=== PATIENT | male | born 1985 | race Caucasian/White ===

== ENCOUNTER 2016-08-31 01:58 | Emergency (ER) | payer OTHER ==
[2016-08-31 02:51] VITALS: BP 129/76; PULSE 70; TEMP 98.1; BMI 23.6
[2016-08-31] MEDS ORDERED: OXYCODONE/APAP 5/325MG COMBO TABLET PO ONE (03:16)
[2016-08-31] MEDS ORDERED: IBUPROFEN 400 MG TABLET (FP) PO ONE ×2 (03:16→03:30)
--- NOTE | 2016-08-31 03:17 | PDOC ---
History of Present Illness - General Chief Complaint: Back Pain Stated Complaint: EXPOSURE,PAIN/LOW BACK Time Seen by Provider: 08/31/16 02:46 History Source: Patient Exam Limitations: No Limitations - History of Present Illness Initial Comments: 08/31/16 04:38 30yo Male patient presents to ED c/o low back pain and right elbow pain. Patient states symptoms began after giving a subject CPR/Chest compressions. 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 He denies any hx of back pain/ injury. Denies any other complaints at this time. Occurred: reports: just prior to arrival Severity: reports: moderate Pain Location: reports: back, upper extremity Method of Injury: Yes: other (See HPI) Modifying Factors: improves with: pain medication, rest Loss of Consciousness: no loss of consciousness Past History - Travel Traveled outside of the country in the last 30 days: No Close contact w/someone who was outside of country & ill: No - Past Medical History Allergies/Adverse Reactions: Allergies Allergy/AdvReac Type Severity Reaction Status Date / Time No Known Allergies Allergy Verified 08/31/16 02:49 Home Medications: Ambulatory Orders Ibuprofen 600 mg PO Q6H PRN #30 tablet 08/31/16 Methocarbamol [Robaxin -] 750 mg PO Q8H PRN #30 tablet 08/31/16 Oxycodone HCl/Acetaminophen [Endocet 5-325 Tablet] 1 each PO Q6H PRN #16 tablet MDD 4 tabs 08/31/16 - Immunization History Immunization Up to Date: Yes - Psycho/Social/Smoking Cessation Hx Anxiety: No Suicidal Ideation: No Smoking Status: No Smoking History: Never smoked Have you smoked in the past 12 months: No Number of Cigarettes Smoked Daily: 0 Information on smoking cessation initiated: No Hx Alcohol Use: No Drug/Substance Use Hx: No Substance Use Type: None Trauma Specific PMHX - Complaint Specific PMHX Arthritis: No Back Injury: No Neck Injury: No Hx Sacro Iliac Joint Dysfunction: No Review of Systems - Review of Systems Able to Perform ROS?: Yes Is the patient limited Bahamian proficient: No Constitutional: No: Chills, Fever HEENTM: No: Blurred Vision, Double Vision Respiratory: No: Cough, Orthopnea, Shortness of Breath, Stridor, Wheezing Cardiac (ROS): No: Chest Pain, Palpitations, Syncope, Chest Tightness ABD/GI: No: Constipated, Diarrhea, Nausea, Vomiting : No: Burning, Dysuria, Discharge, Frequency, Flank Pain, Hematuria, Pain, Urgency Musculoskeletal: Yes: Back Pain, Joint Pain. No: Joint Swelling, Muscle Pain, Muscle Weakness, Neck Pain, Joint Stiffness Integumentary: No: Bruising, Sweating Neurological: No: Headache, Seizure, Unsteady Gait, Ataxia All Other Systems: Reviewed and Negative *Physical Exam - Vital Signs Last Vital Signs Temp Pulse Resp BP Pulse Ox 98.1 F 70 20 129/76 98 08/31/16 02:50 08/31/16 02:50 08/31/16 02:50 08/31/16 02:50 08/31/16 02:50 - Physical Exam General Appearance: Yes: Nourished, Appropriately Dressed. No: Apparent Distress, Mild Distress, Moderate Distress, Severe Distress HEENT: positive: EOMI, MISTY, Normal ENT Inspection, Normal Voice, Symmetrical, TMs Normal, Pharynx Normal. negative: Nasal Congestion, Rhinorrhea, Sinus Tenderness Neck: positive: Trachea midline, Supple. negative: Decreased range of motion, Stridor Respiratory/Chest: positive: Lungs Clear, Normal Breath Sounds. negative: Respiratory Distress, Accessory Muscle Use, Labored Respiration, Rapid RR Cardiovascular: positive: Regular Rhythm, Regular Rate. negative: Edema, JVD, Murmur Gastrointestinal/Abdominal: positive: Normal Bowel Sounds, Soft. negative: Guarding, Rebound, Tenderness Musculoskeletal: positive: Normal Inspection, Decreased Range of Motion, Other ( Left paraspinal tenderness on examination.). negative: CVA Tenderness Extremity: positive: Normal Capillary Refill, Normal Inspection, Normal Range of Motion, Other (Right elbow tenderness. 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, Fully Oriented, Alert, Normal Mood/ Affect, Normal Response, Motor Strength 5/5 ED Treatment Course - RADIOLOGY Radiology Studies Ordered: Category Date Time Status ELBOW-RIGHT [RAD] Stat Radiology 08/31/16 03:16 Ordered SPINE-LUMBAR SACRAL [RAD] Stat Radiology 08/31/16 03:16 Ordered *DC/Admit/Observation/Transfer Diagnosis at time of Disposition: Tendonitis of elbow, right Low back pain Qualifiers: Chronicity: acute Back pain laterality: left Sciatica presence: without sciatica Qualified Code(s): M54.5 - Low back pain - Discharge Dispostion Disposition: HOME Condition at time of disposition: Improved Admit: No - Prescriptions Prescriptions: Oxycodone HCl/Acetaminophen [Endocet 5-325 Tablet] 1 each PO Q6H PRN #16 tablet MDD 4 tabs PRN Reason: Severe Pain Ibuprofen 600 mg PO Q6H PRN #30 tablet PRN Reason: Mild Pain Methocarbamol [Robaxin -] 750 mg PO Q8H PRN #30 tablet PRN Reason: Back Pain - Referrals Referrals: Kayden Buchanan MD [Staff Physician] - - Patient Instructions Printed Discharge Instructions: DI for Low Back Pain, DI for Tendinitis Additional Instructions: FOLLOW UP WITH YOUR PRIMARY CARE PROVIDER. IF SYMPTOMS PERSIST AFTER 1 WEEK WITH MEDICATION USE. CALL DR. BUCHANAN FOR FOLLOW UP APPOINTMENT. APPLY WARM COMPRESS TO LOW BACK AND COLD COMPRESS TO RIGHT ELBOW NEEDED. MANDY WRAP ELBOW FOR PAIN/DISCOMFORT. TAKE MEDICATIONS PRESCRIBED. DO NOT DRIVE, DRINK ALCOHOL OR OPERATE HEAVY MACHINERY WHILE TAKING ENDOCET. Print Language: THAI
[2016-08-31] MEDS ORDERED: OXYCODONE/APAP 5/325MG COMBO TABLET ONE (03:30)
== END 2016-08-31 04:54 | disposition home or self-care (01) ==
LOC: JER 01:58
DX: M70.821 Other soft tissue disorders related to use, overuse and pressure, right upper arm (principal); M54.5 Low back pain; X50.9XXA Other and unspecified overexertion or strenuous movements or postures, initial encounter; Y93.F9 Activity, other caregiving; Y92.89 Other specified places as the place of occurrence of the external cause; Y99.0 Civilian activity done for income or pay
CPT/HCPCS: 72100-TC; 73070-TC-RT; 99281-25

== ENCOUNTER 2017-09-12 18:42 | Emergency (ER) | payer OTHER ==
--- NOTE | 2017-09-12 18:56 | PDOC ---
Rapid Medical Evaluation Time Seen by Provider: 09/12/17 18:47 Medical Evaluation: Allergies Allergy/AdvReac Type Severity Reaction Status Date / Time No Known Allergies Allergy Verified 08/31/16 02:49 09/12/17 18:55 I have performed a brief in-person evaluation of this patient. The patient presents with a chief complaint of: "fighting someone while we were trying to arrest him, fell on both knees" Pertinent physical exam findings: mild erythema to b/l knees, no hematoma/ ecchymosis, ambulatory I have ordered the following: nothing The patient will proceed to the ED for further evaluation.
[2017-09-12 18:57] VITALS: BP 122/72; PULSE 93; TEMP 98.3; BMI 25.0
--- NOTE | 2017-09-12 19:09 | PDOC ---
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 Lanes of pain and mild swelling to bilateral patella. Is ambulatory in no other injury. 09/12/17 19:29 Occurred: reports: this afternoon Severity: reports: mild Pain Location: reports: lower extremity (bilateral knees ) Method of Injury: Yes: fall Associated Symptoms (Fall): denies symptoms Past History - Travel Traveled outside of the country in the last 30 days: No Close contact w/someone who was outside of country & ill: No - Past Medical History Allergies/Adverse Reactions: Allergies Allergy/AdvReac Type Severity Reaction Status Date / Time No Known Allergies Allergy Verified 09/12/17 18:57 Home Medications: Ambulatory Orders NK [No Known Home Medication] 09/12/17 COPD: No - Immunization History Immunization Up to Date: Yes - Suicide/Smoking/Psychosocial Hx Smoking Status: No Smoking History: Never smoked Have you smoked in the past 12 months: No Number of Cigarettes Smoked Daily: 0 Information on smoking cessation initiated: No Hx Alcohol Use: No Drug/Substance Use Hx: No Substance Use Type: None Trauma Specific PMHX - Complaint Specific PMHX Arthritis: No Back Injury: No Neck Injury: No Hx Sacro Iliac Joint Dysfunction: No Review of Systems - Review of Systems Able to Perform ROS?: Yes Is the patient limited Greek proficient: Yes Constitutional: Yes: See HPI. No: Symptoms Reported HEENTM: Yes: See HPI. No: Symptoms Reported Respiratory: Yes: See HPI. No: Symptoms reported Musculoskeletal: Yes: Symptoms Reported, See HPI, Joint Pain, Joint Swelling ( bilateral knees ) Integumentary: Yes: Symptoms Reported, See HPI, Bruising All Other Systems: Reviewed and Negative *Physical Exam - Vital Signs Last Vital Signs Temp Pulse Resp BP Pulse Ox 98.3 F 93 H 18 122/72 100 09/12/17 18:55 09/12/17 18:55 09/12/17 18:55 09/12/17 18:55 09/12/17 18:55 - Physical Exam General Appearance: Yes: Nourished, Appropriately Dressed, Apparent Distress HEENT: positive: MISTY, Normal ENT Inspection, TMs Normal, Pharynx Normal Neck: positive: Supple. negative: Lymphadenopathy (R) Respiratory/Chest: positive: Normal Breath Sounds Musculoskeletal: positive: Normal Inspection. negative: Vertebral Tenderness Extremity: positive: Normal Inspection, Normal Range of Motion, Tender, Swelling (no crepitus, step-off, no bony deformity. No medial or lateral tenderness, is ambulatory without unsteadiness or limp. 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, Fully Oriented, Alert, Normal Mood/ Affect, Normal Response, Motor Strength /5 Progress Note - Progress Note Progress Note: contusion, bilateral knees we'll treat conservatively with ice packs and ibuprofen *DC/Admit/Observation/Transfer Diagnosis at time of Disposition: Knee contusion Qualifiers: Encounter type: initial encounter Laterality: unspecified laterality Qualified Code(s): S80.00XA - Contusion of unspecified knee, initial encounter - Discharge Dispostion Disposition: HOME Condition at time of disposition: Stable Admit: No - Referrals Referrals: Kendy Rivera MD [Primary Care Provider] - - Patient Instructions Printed Discharge Instructions: DI for Contusion Additional Instructions: Rest, ice to area on and off for 15 minutes 4-6 times a day Avoid heavy lifting or exercise until pain and swelling is resolved or until further directed Keep area highly elevated to reduce swelling Use splints/Nav wrap as directed Followup with orthopedist in one to 2 days if not improving, if significantly improved may wait one week for followup with orthopedist May use ibuprofen 2-200 mg tablets every 6 hours as needed for pain - Post Discharge Activity Forms/Work/School Notes: Back to Work
[2017-09-12] MEDS ORDERED: IBUPROFEN 600 MG TABLET (FP) PO ONE ×2 (19:26→19:27)
== END 2017-09-12 19:33 | disposition home or self-care (01) ==
LOC: JERFT 18:42
DX: S80.02XA Contusion of left knee, initial encounter (principal); S80.01XA Contusion of right knee, initial encounter; W18.39XA Other fall on same level, initial encounter; Y35.811A Legal intervention involving manhandling, law enforcement official injured, initial encounter; Y93.89 Activity, other specified; Y92.89 Other specified places as the place of occurrence of the external cause; Y99.0 Civilian activity done for income or pay
CPT/HCPCS: 99281-25

== ENCOUNTER 2018-02-21 21:38 | Emergency (ER) | payer OTHER ==
--- NOTE | 2018-02-21 21:51 | PDOC ---
Rapid Medical Evaluation Chief Complaint: Non EmpBld/Body Flud Exposure Time Seen by Provider: 02/21/18 21:49 Medical Evaluation: Allergies Allergy/AdvReac Type Severity Reaction Status Date / Time No Known Allergies Allergy Verified 09/12/17 18:57 02/21/18 21:50 I have performed a brief in-person evaluation of this patient. The patient presents with a chief complaint of: [employer], patient was potentially exposed to someone with TB on 02/15, reports having "minor cold last week", denies fevers, nightsweats, hemoptysis Pertinent physical exam findings: lungs ctab I have ordered the following: chest x-ray The patient will proceed to the ED for further evaluation. Discharge Disposition - Diagnosis Tuberculosis exposure - Referrals - Patient Instructions
[2018-02-21 21:53] VITALS: BP 129/63; PULSE 79; TEMP 97.9; BMI 25.7
--- NOTE | 2018-02-21 22:23 | PDOC ---
History of Present Illness - General Chief Complaint: Non EmpBld/Body Flud Exposure Stated Complaint: EXPOSURE-[employer] Time Seen by Provider: 02/21/18 21:49 History Source: Patient Exam Limitations: No Limitations - History of Present Illness Initial Comments: 02/21/18 22:17 32-year-old male presents to ED for possible TB exposure. 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 Timing/Duration: 1-3 hours Associated Symptoms: reports: denies symptoms Past History - Travel Traveled outside of the country in the last 30 days: No - Past Medical History Allergies/Adverse Reactions: Allergies Allergy/AdvReac Type Severity Reaction Status Date / Time No Known Allergies Allergy Verified 09/12/17 18:57 Home Medications: Ambulatory Orders NK [No Known Home Medication] 09/12/17 COPD: No - Immunization History Immunization Up to Date: Yes - Suicide/Smoking/Psychosocial Hx Smoking Status: No Smoking History: Never smoked Have you smoked in the past 12 months: No Number of Cigarettes Smoked Daily: 0 Information on smoking cessation initiated: No Hx Alcohol Use: No Drug/Substance Use Hx: No Substance Use Type: None Patient Lives Alone: No Review of Systems - Review of Systems Able to Perform ROS?: No Constitutional: No: Symptoms Reported HEENTM: No: Symptoms Reported Respiratory: No: Symptoms reported Cardiac (ROS): No: Symptoms Reported ABD/GI: No: Symptoms Reported Musculoskeletal: No: Symptoms Reported Integumentary: No: Symptoms Reported Neurological: No: Symptoms reported *Physical Exam - Vital Signs Last Vital Signs Temp Pulse Resp BP Pulse Ox 97.9 F 79 16 129/63 100 02/21/18 21:49 02/21/18 21:49 02/21/18 21:49 02/21/18 21:49 02/21/18 21:49 - Physical Exam General Appearance: Yes: Nourished, Appropriately Dressed. No: Apparent Distress Respiratory/Chest: positive: Lungs Clear, Normal Breath Sounds. negative: Respiratory Distress, Accessory Muscle Use Integumentary: positive: Normal Color, Warm, Moist Neurologic: positive: Motor Strength 5/5 (ambulatory) ED Treatment Course - RADIOLOGY Radiology Studies Ordered: Category Date Time Status CHEST PA & LAT [RAD] Stat Radiology 02/21/18 22:04 Taken Medical Decision Making - Medical Decision Making 02/21/18 22:18 Patient with exposure to active TB deinee which was disclosed after he was with the individual. Patient ordered x-ray for baseline and will require Quantieron PPD placement which he could have done at [facility] 02/21/18 22:20 x-ray negative or acute findings. Patient to f/u with [facility] *DC/Admit/Observation/Transfer Diagnosis at time of Disposition: Tuberculosis exposure - Discharge Dispostion Disposition: HOME Condition at time of disposition: Good - Referrals - Patient Instructions Printed Discharge Instructions: DI for Tuberculosis Additional Instructions: Please go to [facility] to have testing either to PPD or Qantiferon blood test. Also understand that he will need retesting in 8-10 weeks after initial blood work - Post Discharge Activity Forms/Work/School Notes: Back to Work
== END 2018-02-21 22:26 | disposition home or self-care (01) ==
LOC: JER 21:38
DX: Z20.1 Contact with and (suspected) exposure to tuberculosis (principal); Y35.891A Legal intervention involving other specified means, law enforcement official injured, initial encounter; Y93.89 Activity, other specified; Y92.89 Other specified places as the place of occurrence of the external cause; Y99.0 Civilian activity done for income or pay
CPT/HCPCS: 71046-TC-FY; 99281-25

== ENCOUNTER 2018-08-11 23:09 | Emergency (ER) | payer OTHER ==
[2018-08-11 23:16] VITALS: BP 136/91; PULSE 84; TEMP 98.1; BMI 25.7
--- NOTE | 2018-08-12 00:08 | PDOC ---
History of Present Illness - General Chief Complaint: Injury Stated Complaint: RT HAND INJURY Time Seen by Provider: 08/11/18 23:27 History Source: Patient Exam Limitations: No Limitations - History of Present Illness Initial Comments: 08/12/18 00:06 Rose is a 32 year old male with no past medical history here with right hand swelling which occurred 1 hour [employer]. 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 His any numbness or tingling in the hand. Patient is right-hand dominant. PMD: Does not remember name PMHx: As above PSOCHx: Negative cig drugs, EtOH ALL: NKDA GENERAL/CONSTITUTIONAL: [No fever or chills. No weakness. No weight change.] HEAD, EYES, EARS, NOSE AND THROAT: [No change in vision. No ear pain or discharge. No sore throat.] CARDIOVASCULAR: [No chest pain or shortness of breath.] RESPIRATORY: [No cough, wheezing, or hemoptysis.] GASTROINTESTINAL: [No nausea, vomiting, diarrhea or constipation. No rectal bleeding.] GENITOURINARY: [No dysuria, frequency, or change in urination.] MUSCULOSKELETAL: [No joint (+) muscle swelling or pain. No neck or back pain.] SKIN AND BREASTS: [No rash or easy bruising.] NEUROLOGIC: [No headache, vertigo, loss of consciousness, or loss of sensation.] PSYCHIATRIC: [No depression or anxiety.] ENDOCRINE: [No increased thirst. No abnormal weight change.] HEMATOLOGIC/LYMPHATIC: [No anemia, easy bleeding, or history of blood clots.] ALLERGIC/IMMUNOLOGIC: [No hives or skin allergy. No latex allergy.] GENERAL: [The patient is awake, alert, and fully oriented, in no acute distress. ] HEAD: [Normal with no signs of trauma.] EYES: [Pupils equal, round and reactive to light, extraocular movements intact, sclera anicteric, conjunctiva clear.] ENT: [Ears normal, nares patent, oropharynx clear without exudates. Moist mucous membranes.] NECK: [Normal range of motion, supple without lymphadenopathy, JVD, or masses.] LUNGS: [Breath sounds equal, clear to auscultation bilaterally. No wheezes, and no crackles.] HEART: [Regular rate and rhythm, normal S1 and S2 without murmur, rub.] ABDOMEN: [Soft, nontender, normoactive bowel sounds. No guarding, no rebound. No masses.] EXTREMITIES: [Normal range of motion of the right hand and wrist, (+) swelling over the third and fourth metacarpal, (-) no tenderness to hand, no tenderness over the anatomical snuffbox, no edema. No clubbing or cyanosis. No cords, erythema, or tenderness, other extremity is not involved] NEUROLOGICAL: [Cranial nerves II through XII grossly intact. Normal speech, normal gait.] PSYCH: [Normal mood, normal affect.] SKIN: [Warm, Dry, normal turgor, no rashes or lesions noted.] Past History - Past Medical History Allergies/Adverse Reactions: Allergies Allergy/AdvReac Type Severity Reaction Status Date / Time No Known Allergies Allergy Verified 08/11/18 23:16 Home Medications: Ambulatory Orders NK [No Known Home Medication] 09/12/17 COPD: No - Immunization History Immunization Up to Date: Yes - Suicide/Smoking/Psychosocial Hx Smoking Status: No Smoking History: Never smoked Have you smoked in the past 12 months: No Number of Cigarettes Smoked Daily: 0 Information on smoking cessation initiated: No Hx Alcohol Use: No Drug/Substance Use Hx: No Substance Use Type: None Trauma Specific PMHX - Complaint Specific PMHX Arthritis: No Back Injury: No Neck Injury: No Hx Sacro Iliac Joint Dysfunction: No *Physical Exam - Vital Signs Last Vital Signs Temp Pulse Resp BP Pulse Ox 98.1 F 84 16 136/91 97 08/11/18 23:09 08/11/18 23:09 08/11/18 23:09 08/11/18 23:09 08/11/18 23:09 Moderate Sedation - Procedure Monitoring Vital Signs: Procedure Monitoring Vital Signs Temperature 98.1 F 08/11/18 23:09 Pulse Rate 84 08/11/18 23:09 Respiratory Rate 16 08/11/18 23:09 Blood Pressure 136/91 08/11/18 23:09 O2 Sat by Pulse Oximetry (%) 97 08/11/18 23:09 ED Treatment Course - RADIOLOGY Radiology Studies Ordered: Category Date Time Status HAND- RIGHT [RAD] Stat Radiology 08/11/18 23:23 Taken Medical Decision Making - Medical Decision Making 08/12/18 00:06 Patient is a 32 year old male with no past medical history here with right hand swelling which occurred 1 hour [employer]. 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 His any numbness or tingling in the hand. Patient is right-hand dominant. Injury consistent with contusion rule out fracture. X-ray right hand Pain meds offered but refused X-ray revealed noted no acute injury/fracture. 08/12/18 00:33 I discussed the physical exam findings, ancillary test results and final diagnoses with the patient. I answered all of the patient's questions. The patient was satisfied with the care received and felt comfortable with the discharge plan and treatment plan. The Patient agrees to follow up with the primary care physician within 24-72 hours. *DC/Admit/Observation/Transfer Diagnosis at time of Disposition: Hand contusion Qualifiers: Encounter type: initial encounter Laterality: right Qualified Code(s): S60.221A - Contusion of right hand, initial encounter - Discharge Dispostion Disposition: HOME Condition at time of disposition: Stable - Referrals - Patient Instructions Printed Discharge Instructions: DI for Contusion Additional Instructions: Your Discharge Instructions: You must call primary care physician within 24 hours to arrange follow-up. Return to the Emergency Department with any new, persistent or worsening symptoms, for fever, chills, SOB, dizziness or any other concerning changes that may occur. Continue ice packs 20 minutes interval until swelling goes down. Take some Motrin for ear pain. - Post Discharge Activity
== END 2018-08-12 01:33 | disposition home or self-care (01) ==
LOC: JER 23:09
DX: S60.221A Contusion of right hand, initial encounter (principal); Y93.89 Activity, other specified; Y35.891A Legal intervention involving other specified means, law enforcement official injured, initial encounter; Y92.89 Other specified places as the place of occurrence of the external cause; Y99.0 Civilian activity done for income or pay
CPT/HCPCS: 73130-TC-RT-FY; 99281-25

== ENCOUNTER 2018-09-10 17:52 | Emergency (ER) | payer OTHER ==
[2018-09-10 18:27] VITALS: BP 120/80; PULSE 75; TEMP 98; BMI 25.7
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
[2018-09-10] MEDS ORDERED: IBUPROFEN 400 MG TABLET (FP) PO ONE ×2 (18:51→19:02)
== END 2018-09-10 19:13 | disposition home or self-care (01) ==
LOC: JERFT 17:52
DX: S80.01XA Contusion of right knee, initial encounter (principal); S50.311A Abrasion of right elbow, initial encounter; Y35.811A Legal intervention involving manhandling, law enforcement official injured, initial encounter; Y93.89 Activity, other specified; Y92.89 Other specified places as the place of occurrence of the external cause; Y99.0 Civilian activity done for income or pay
CPT/HCPCS: 73562-TC-RT-FY; 99281-25

== ENCOUNTER 2018-12-26 20:50 | Emergency (ER) | payer OTHER ==
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
[2018-12-26 21:01] VITALS: BP 114/79; PULSE 99; TEMP 98; BMI 25.7
[2018-12-26] MEDS ORDERED: IBUPROFEN 600 MG TABLET (FP) PO ONE (22:16)
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
== END 2018-12-26 22:51 | disposition home or self-care (01) ==
LOC: JERFT 20:50 → JER 20:50 → JERFT 22:51
DX: S60.812A Abrasion of left wrist, initial encounter (principal); S60.811A Abrasion of right wrist, initial encounter; Y35.811A Legal intervention involving manhandling, law enforcement official injured, initial encounter; Y93.89 Activity, other specified; Y92.89 Other specified places as the place of occurrence of the external cause; Y99.0 Civilian activity done for income or pay
CPT/HCPCS: 73110-TC-RT-FY; 73130-TC-RT-FY; 99281-25

== ENCOUNTER 2019-01-06 23:52 | Emergency (ER) | payer OTHER | END 2019-01-07 00:36 | disposition home or self-care (01) | LOC: JER 23:52 | DX: H93.13 Tinnitus, bilateral (principal); Y35.091A Legal intervention involving other firearm discharge, law enforcement official injured, initial encounter; W34.09XA Accidental discharge from other specified firearms, initial encounter; Y93.89 Activity, other specified; Y92.812 Truck as the place of occurrence of the external cause; Y99.0 Civilian activity done for income or pay ==

== ENCOUNTER 2019-05-10 23:46 | Emergency (ER) | payer OTHER ==
[2019-05-10 23:54] VITALS: BP 130/75; PULSE 75; TEMP 97.9; BMI 25.7
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
== END 2019-05-11 00:34 | disposition home or self-care (01) ==
LOC: JER 23:46
DX: Z77.21 Contact with and (suspected) exposure to potentially hazardous body fluids (principal); Y35.891A Legal intervention involving other specified means, law enforcement official injured, initial encounter; Y93.89 Activity, other specified; Y92.89 Other specified places as the place of occurrence of the external cause; Y99.0 Civilian activity done for income or pay
CPT/HCPCS: 99281-25

== ENCOUNTER 2020-02-18 16:58 | Emergency (ER) | payer OTHER ==
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
[2020-02-18] MEDS ORDERED: IBUPROFEN 400 MG TABLET (FP) PO ONE ×2 (17:19→17:26)
[2020-02-18 17:41] VITALS: BP 131/68; PULSE 77; TEMP 98.3; BMI 25.0
== END 2020-02-18 18:42 | disposition home or self-care (01) ==
LOC: FER 16:58
DX: S63.601A Unspecified sprain of right thumb, initial encounter (principal)
CPT/HCPCS: 73110-TC-RT-FY; 73130-TC-RT-FY; 99283-25

== ENCOUNTER 2020-11-29 17:29 | Emergency (ER) | payer OTHER ==
[2020-11-29 17:35] VITALS: BP 129/78; PULSE 66; TEMP 99.2; BMI 25.7
[2020-11-29] MEDS ORDERED: IBUPROFEN 600 MG TABLET (FP) PO ONE (17:42)
== END 2020-11-29 17:43 | disposition home or self-care (01) ==
LOC: FER 17:29
DX: S13.4XXA Sprain of ligaments of cervical spine, initial encounter (principal)
CPT/HCPCS: 99283-25